=== PATIENT | female | born 1990 | race Caucasian/White ===

== ENCOUNTER 2016-10-25 00:05 | Emergency (ER) | payer MEDICAID, OTHER ==
[~2016-10-25] VITALS: Ht 157.5 cm; Wt 66.2 kg
[2016-10-25 00:15] VITALS: BP 140/77
[2016-10-25] MEDS ORDERED: KETOROLAC 30 MG/ML VIAL IVP ONE (02:00)
[2016-10-25] MEDS ORDERED: diphenhydrAMINE 50 MG/ML VIAL IVP ONE (02:00)
[2016-10-25] MEDS ORDERED: NACL 0.9% 1,000 ML IV ONE (02:00)
[2016-10-25 02:18] LABS: APPEARANCE,URINE SL CLOUDY (CLEAR); BILIRUBIN,URINE NEGATIVE (NEGATIVE); BLOOD, URINE NEGATIVE (NEGATIVE); COLOR,URINE YELLOW (YELLOW); LEUKOCYTE ESTERASE ,URINE NEGATIVE (NEGATIVE); NITRITE, URINE NEGATIVE (NEGATIVE); PROTEIN,URINE 1+ (NEGATIVE); UGLUCOSE NEGATIVE (NEGATIVE); UROBILINOGEN,URINE 0.2 EU/dL (0.2 - 1)
[2016-10-25 02:36] LABS: BACTERIA,URINE 3+ /HPF (None Seen); MUCUS,URINE 4+ /LPF (None Seen); RBC,URINE 0-5 (RARE) /HPF (0-5); WBC,URINE 0-5 (RARE) /HPF (0-5)
[2016-10-25] MEDS ORDERED: MORPHINE SULFATE 4 MG/ML SYR IVP ONE (03:15)
[2016-10-25 03:45] VITALS: BP 115/65
== END 2016-10-25 03:45 | disposition home or self-care (01) ==
LOC: MED 00:05
DX: M79.1 Myalgia (principal); J02.9 Acute pharyngitis, unspecified
CPT/HCPCS: 81001; 81025; 87086; 96361; 96374; 96375; 99284; J1200; J1885; J7030

== ENCOUNTER 2019-05-03 11:14 | Emergency (ER) | payer OTHER, MEDICAID ==
[~2019-05-03] VITALS: Ht 157.5 cm; Wt 65.8 kg
[2019-05-03 11:32] VITALS: BP 94/44
--- NOTE | 2019-05-03 11:39 | NUR ---
WAIT AT LOBBY. HANDED ON URINE CUP.
--- NOTE | 2019-05-03 12:00 | NUR ---
NO ANSWER IN ER LOBBY
--- NOTE | 2019-05-03 12:43 | NUR ---
NO ANSWER IN ER LOBBY
== END 2019-05-03 12:00 | disposition left against medical advice (07) ==
LOC: MED 11:14
DX: R10.9 Unspecified abdominal pain (principal); Z53.21 Procedure and treatment not carried out due to patient leaving prior to being seen by health care provider